=== PATIENT | male | born 1955 | race Caucasian/White ===

== ENCOUNTER 2021-06-19 20:48 | Inpatient (IN) | payer MEDICARE, BC ==
[~2021-06-19] VITALS: Ht 172.7 cm; Wt 77.1 kg
--- NOTE | 2021-06-19 21:05 | NUR ---
MARTY MARTIN FROM [facility] GPS. PLACED IN BED 11 ON MONITOR AND PULSE OX. AWAITING ER MD FOR EVAL AND ORDERS.
--- NOTE | 2021-06-19 21:23 | NUR ---
BREEZYID SWABBED, SENT TO LAB.
--- NOTE | 2021-06-19 22:13 | NUR ---
GPS 211-A
--- NOTE | 2021-06-19 22:29 | NUR ---
REPORT GIVEN TO FABIAN RAMIREZ FOR JUAN
[2021-06-19 23:00] VITALS: BP 129/85
[2021-06-19 23:15] VITALS: BP 129/85
[2021-06-19] MEDS ORDERED: MAG HYDROX/AL HYDROX/SIMETH 30 ML UDC PO PRN (23:30)
[2021-06-19] MEDS ORDERED: TEMAZEPAM 7.5 MG CAPSULE PO PRN (23:30)
[2021-06-19] MEDS ORDERED: MAGNESIUM HYDROXIDE 30 ML UDC PO PRN (23:30)
[2021-06-19] MEDS ORDERED: ACETAMINOPHEN 325 MG TABLET PO PRN (23:30)
[2021-06-19] MEDS ORDERED: BLOOD SUGAR DIAGNOSTIC 1 EACH STRIP IN ONE (23:30)
--- NOTE | 2021-06-20 00:15 | NUR ---
GPS OXYGEN EQUIPMENT TECHNICIAN NOTE RECEIVED 65 YRS OLD MALE PATIENT FROM [facility] DIRECT ADMIT. PATIENT ADMITTED ON A 5150 HOLD FOR DTO/GD. PER HOLD PATIENT IS CONFUSED, DISORGANIZED, DISORIENTED. ACCORDING TO PATIENT'S , PATIENT HAS BEEN INCREASINGLY AGITATED & AGGRESSIVE, PATIENT CLIMBED THE FENCE THREE TIMES AT SNF, ELOPED FROM SNF. WHEN STAFF ATTEMPTED TO BRING HIM BACK TO SNF, PATIENT REFUSED TO GO BACK & AGGRESSIVE TO STAFF, A WEEK AGO, PATIENT KICKED STAFF AT THE FACILITY. PATIENT HAS NO LONGER REGARDS TO HIS SAFETY OF OTHERS. POOR INSIGHT & IMPAIRED JUDGEMENT. PATIENT HAS PREVIOUS INPATIENT PSYCHIATRIC HOSPITALIZATION LAST JULY 2020 AT [facility]. UPON FACE TO FACE ASSESSMENT PATIENT IS A & O TO HIS NAME ONLY, CONFUSED, ANXIOUS, RESTLESS, DISHEVELED, DISORGANIZED, DISORIENTED, AGITATED, AGGRESSIVE, COMBATIVE DURING ADL CARE, NO S/S OF PAIN. NO S/S OF APPARENT DISTRESS NOTED. UNABLE TO OBTAIN ANY HISTORY FROM THE PATIENT DUE TO EXTREME CONFUSION. NON AMBULATORY, HIGH FALL RISK, UNCLEAR SPEECH, UNABLE TO FOLLOW ANY DIRECTIONS. PATIENT IS UNABLE TO SIGN ANY PAPER WORK DUE TO CURRENT MENTAL STATUS. PATIENT IS UNDER THE PSYCHIATRIC CARE OF DR. PADILLA AND THE MEDICAL CARE OF [facility]. PATIENT BELONGINGS WERE INVENTORIED AND CHECKED FOR CONTRABAND. PATIENT ADVANCED DIRECTIVES PREFERENCE, IMMUNIZATIONS QUESTIONER, NECESSARY PAPERWORK COMPLETED. SKIN ASSESSMENT DONE. PATIENT ORIENTATED TO ROOM, FLOOR, AND STAFF. PATIENT BED SIDE RAILS ARE UP X 2 FOR SAFETY. HOB ELEVATED 30-45 DEGREE TO PREVENT ASPIRATION. PATIENT IS UNABLE TO PROVIDE INFORMATION ABOUT COVID 19 & PNEUMONIA VACCINE. PATIENT BED IS LOW/LOCKED. BED ALARM IS ON. I WILL CONTINUE TO MONITOR THIS PATIENT Q 15 MIN WITH THE HELP OF STAFF TO MAINTAIN SAFETY.
[2021-06-20] MEDS: clonazePAM 0.5 MG TABLET PO PRN ×2 (00:51→11:32)
--- NOTE | 2021-06-20 00:53 | NUR ---
RN NOTE: ANXIETY/AGITATION PATIENT IS VERY ANXIOUS, AGITATED, RESTLESS, IRRITABLE, CLIMBING OUT OF BED, COMBATIVE DURING CARE, UNABLE TO REDIRECT THE PATIENT DUE TO CONFUSION. PRN KLONOPIN 0.5 MG 1 TAB PO ADMINISTERED. PATIENT WAS ASSISTED TO KUMAR CHAIR SINCE PATIENT IS UNCOOPERATIVE TO STAY IN BED, UNAWARE ABOUT HIS SAFETY, HIGH FALL RISK. WILL CONTINUE TO MONITOR FOR SAFETY & BEHAVIOR.
--- NOTE | 2021-06-20 01:00 | NUR ---
RN NOTE PATIENT IS UP IN A KUMAR CHAIR, OFFERED NECTAR THICK LIQUIDS TOLERATED, PATIENT TAKES TIMES TO SWALLOW. PATIENT WAS NOTED PICKING HIS ARM SCAB, UNABLE TO FOLLOW DIRECTIONS. WILL CONTINUE TO MONITOR.
[2021-06-20] MEDS ORDERED: BUSP10TA3 PO (01:13)
[2021-06-20] MEDS ORDERED: OLAN5TAB3 PO (01:13)
[2021-06-20] MEDS ORDERED: QUET25TA PO ×3 (01:13)
[2021-06-20] MEDS ORDERED: LAMO150T6 PO (01:13)
[2021-06-20] MEDS ORDERED: LISI10TA29 PO (01:13)
[2021-06-20] MEDS ORDERED: LOVA20TA2 PO (01:13)
[2021-06-20] MEDS ORDERED: VENL150C58 PO (01:13)
[2021-06-20] MEDS ORDERED: MEMA10TA PO (01:13)
[2021-06-20] MEDS ORDERED: Z GUARD REMEDY 4 OZ OINT TP PRN (03:00)
--- NOTE | 2021-06-20 06:10 | NUR ---
RN NOTE DR. ALEX BURRELL NOTIFIED TO RECONCILE THE MEDS. WILL ENDORSE TO AM RN TO FOLLOW UP.
--- NOTE | 2021-06-20 06:50 | NUR ---
RN NOTE PATIENT REFUSED AM LABS AT THIS TIME, PATIENT GETS VERY RESTLESS & AGITATED WHEN TOUCHED, UNCOOPERATIVE AT THIS TIME. POWER NUT RUNNER OPERATOR WILL TRY AGAIN LATER.
--- NOTE | 2021-06-20 06:53 | NUR ---
RN NOTE CALLED PATIENT'S AURA RICHTER AT [phone] & NOTIFIED ABOUT PATIENT'S ADMISSION AT GPS UNIT. AURA HAS POA & PER AURA PATIENT IS DNR/DNI (NO CODE). WILL ENDORSE TO AM RN TO VERIFY CODE STATUS WITH AM MD. AURA WOULD CALL BACK AFTER 10 AM TO GET MORE UPDATE ABOUT PATIENT'S HEALTH CONDITION. Addendum: 06/20/21 at 8640 by JACKELIN CUEAV RN STREET LIGHT SERVICER SUPERVISOR HAD CONVERSATION WITH PATIENT'S AURA VIA PHONE ABOUT PATIENT BEING DNR/DNI AND WITNESSED BY ANOTHER RN MARY.
--- NOTE | 2021-06-20 07:25 | NUR ---
RN NOTE ENDORSED TO AM RN TO FOLLOW UP ABOUT MED RECON & CODE STATUS.
[2021-06-20 08:00] VITALS: BP 132/83
[2021-06-20] MEDS ORDERED: Z GUARD REMEDY 2 OZ OINT TP SCH (09:00)
--- NOTE | 2021-06-20 09:01 | NUR ---
WOUND CARE CONSULT: PT PRESENTS WITH MULTIPLE DRY ABRASIONS, SCABS AND DISCOLORATIONS, PRESENT ON ADMISSION. LIMITED ASSESSMENT AT THIS TIME DUE TO PT STRIKING OUT AT STAFF UNEXPECTEDLY. LEFT ARM ABRASION NOTED. RECOMMENDATIONS MADE FOR SKIN PROTECTION AND WOUND CARE. DISCUSSED WITH NURSING STAFF. MD IN AGREEMENT WITH PLAN OF CARE.
--- NOTE | 2021-06-20 11:33 | NUR ---
RN NOTE: ANXIETY/AGITATION PATIENT IS VERY ANXIOUS, AGITATED, RESTLESS, IRRITABLE, CLIMBING OUT OF BED, UNABLE TO REDIRECT THE PATIENT DUE TO CONFUSION. PRN KLONOPIN 0.5 MG 1 TAB PO ADMINISTERED. UNAWARE ABOUT HIS SAFETY, HIGH FALL RISK. WILL CONTINUE TO MONITOR FOR SAFETY & BEHAVIOR.
[2021-06-20] MEDS ORDERED: VENLAFAXINE XR 150 MG CAP.SR.24H PO SCH (13:40)
[2021-06-20] MEDS: LamoTRIgine 100 MG TABLET PO SCH ×2 (14:05→21:44)
[2021-06-20 16:00] VITALS: BP 145/97
[2021-06-20] MEDS ORDERED: MEMANTINE HCL 5 MG TABLET PO SCH (17:00)
[2021-06-20] MEDS ORDERED: LamoTRIgine 100 MG TABLET PO SCH (17:00)
--- NOTE | 2021-06-20 17:30 | NUR ---
OBSERVED LEFT ELBOW INFLAMMATION AND LOCALIZED SWELLING SOFT TO TOUCH. WILL ENDORSE TO NOC SHIFT RN IN ORDER TO HAVE MD EVALUATE AREA SEEMS ROEL AND SWOLLEN.
[2021-06-20 18:03] LABS: BASOPHILS % (AUTO) 0.3 % (0.0-2.0); HEMATOCRIT 47 % (39-51); HEMOGLOBIN 15.8 g/dL (13.5-17.5); LYMPHOCYTES # (AUTO) 1.1 K/uL (0.8-4.8); LYMPHOCYTES % (AUTO) 8.4 % (20.0-44.0); MEAN CORPUSCULAR HGB CONC 34 g/dl (31.0-36.0); MEAN CORPUSCULAR VOLUME 92 fL (80-96); MONOCYTES # (AUTO) 1.2 K/uL (0.1-1.30); MONOCYTES % (AUTO) 8.7 % (2.0-12.0); NEUTROPHILS # (AUTO) 11.1 K/uL (1.8-8.9); NEUTROPHILS % (AUTO) 82.6 % (43.0-81.0); PLATELET COUNT (AUTO) 465 K/uL (150-450); RED BLOOD CELL COUNT(AUTO) 5.09 MIL/uL (4.5-6.0); WHITE BLOOD COUNT (AUTO) 13.4 K/uL (4.3-11.0)
--- NOTE | 2021-06-20 19:24 | NUR ---
GPS/TIRE TRIMMER HAND Notes: Received report from AM nurse regarding Left swollen elbow during change of shift. Picture taken and MD notified with following orders: STAT US bilateral extremities. Waiting for radiology to call.
[2021-06-20 20:12] LABS: CALCIUM, SERUM 9.8 mg/dL (8.5-10.1); CREATININE 2.7 mg/dL (0.6-1.3); POTASSIUM 3.7 mmol/L (3.5-5.1)
[2021-06-20] MEDS ORDERED: OLANZAPINE ZYDIS 5 MG TAB.RAPDIS PO SCH (22:00)
[2021-06-20 23:01] VITALS: BP 140/93
--- NOTE | 2021-06-21 00:25 | NUR ---
GPS/HEARING AID REPAIR TECHNICIAN Discharge notes: PT. DISCHARGED TO TELE ROOM 325. REPORT GIVEN TO ALMA ROSA RAMIREZ. DR. PADILLA INFORMED OF DISCHARGE. DR. PADILLA GAVE ORDER TO CONTINUE HOLD AND PSYCH MEDS. DR. BURRELL GAVE ORDER TO ADMIT TO TELE FOR LEFT ELBOW INFECTION. ALL ORDERS NOTED AND CARRIED OUT. PT. WAS DISCHARGE WITH ACLS PROTOCOL. FAMILY INFORMED.
[2021-06-21] MEDS ORDERED: ATORVASTATIN 10 MG TABLET PO SCH (09:00)
[2021-06-21] MEDS ORDERED: LISINOPRIL (10MG) 10 MG TABLET PO SCH (09:00)
--- NOTE | 2021-06-21 14:58 | NUR ---
SS Note Pt was transferred to the medical floor on 06/21/21 due to left elbow infection. SS will remain available as needed.
== END 2021-06-20 23:59 | disposition short-term general hospital (02) | DRG 885 ==
LOC: ER 21:08 → GPS 22:37
PROVIDERS: ADMIT Psychiatry & Neurology Psychiatry; ATTEND Internal Medicine
DX: F25.9 Schizoaffective disorder, unspecified (principal); F29 Unspecified psychosis not due to a substance or known physiological condition; F41.9 Anxiety disorder, unspecified; E78.5 Hyperlipidemia, unspecified; I10 Essential (primary) hypertension; G31.84 Mild cognitive impairment of uncertain or unknown etiology; Z79.899 Other long term (current) drug therapy; S09.90XD Unspecified injury of head, subsequent encounter; W19.XXXD Unspecified fall, subsequent encounter; Z73.6 Limitation of activities due to disability
CPT/HCPCS: 36415; 71045-TC; 76882; 80048-TC; 80061-TC; 82962-TC; 84443-TC; 85025-TC; 87081-TC; 92521; 92526; 97112-TC; 97530-TC; C9803

== ENCOUNTER 2021-06-21 00:28 | Inpatient (IN) | payer MEDICARE, BC ==
[~2021-06-21] VITALS: Ht 172.7 cm; Wt 79.8 kg
[2021-06-21 00:20] VITALS: BP 140/84
--- NOTE | 2021-06-21 00:20 | NUR ---
RECEIVED FROM GPS MR. RICHTER IN HIS GPS BED WITH 4 NURSES TRANSFERED TO THE BED IN ROOM 325-2 PATIENT WILL OPEN EYES GIVE MOMENTARY EYE CONTACT THEN CLOSE HIS EYES. PATIENT IS FLUSHED SKIN HOT TO TOUCH TEMP ORALLY 98.5 TYLENOL WAS GIVEN 30 MINUTES AGO. SCABBED RIGHT KNEE RIGHT GROIN ECCHYMOTIC LEFT ELBOW RED HOT TO TOUCH AND SWOLLEN DX INFECTION LEFT ELBOW/SEPSIS
[~2021-06-21 00:28] MED LIST: BUSP10TA3 PO; LAMO150T6 PO; LISI10TA29 PO; LOVA20TA2 PO; MEMA10TA PO; OLAN5TAB3 PO; QUET25TA PO; VENL150C58 PO
[2021-06-21] MEDS ORDERED: VANCOMYCIN HCL 1 GM in IV D5W 260 ML IV ONE (01:30)
[2021-06-21] MEDS ORDERED: MAG HYDROX/AL HYDROX/SIMETH 30 ML UDC PO PRN (01:30)
[2021-06-21] MEDS ORDERED: ACETAMINOPHEN 325 MG TABLET PO PRN (01:30)
[2021-06-21] MEDS ORDERED: hydrALAZINE HCL IV 20 MG VIAL IV PRN (01:30)
[2021-06-21] MEDS ORDERED: MORPHINE SULFATE INJ 2 MG/ML DISP.SYRIN IV PRN (01:30)
[2021-06-21] MEDS ORDERED: ONDANSETRON HCL/PF 4 MG/2 ML VIAL IVP PRN (01:30)
[2021-06-21] MEDS ORDERED: IV NS 0.9% 1,000 ML IV PRN (01:30)
[2021-06-21] MEDS ORDERED: VANCOMYCIN HCL 1 GM in IV D5W 260 ML IV SCH (01:30)
[2021-06-21] MEDS ORDERED: LABETALOL 20 MG/4 ML VIAL IV PRN (01:30)
[2021-06-21] MEDS: IV D5/0.45 NACL 1,000 ML IV SCH ×2 (02:05→14:38)
[2021-06-21] MEDS ORDERED: VANCOMYCIN 1 GM VIAL ONE (02:20)
[2021-06-21] MEDS ORDERED: CEFEPIME 1 GM VIAL ONE (02:49)
[2021-06-21] MEDS: CEFEPIME 1 GM in IV D5W 50 ML IV SCH (03:14)
--- NOTE | 2021-06-21 04:20 | NUR ---
CLOSING NOTES: SLEPT SINCE ARRIVING FROM gps AT 0020. WHEN TOUCHED OR REPOSITIONED WITH JERK ABOUT IN THE BED ARMS AND LEGS AND HIS BODY. IF LEFT ALONE WILL LIE QUIETLY AND STILL ORDERED ATB INFUSED ORDERED. SKIN MUCH COOLER TO TOUCH UNABLE TO GET UA ORDERED INCONTIENT UA
[2021-06-21 06:53] LABS: BASOPHILS % (AUTO) 0.2 % (0.0-2.0); EOSINOPHILS % (AUTO) 0.1 % (0.0-6.0); HEMATOCRIT 50 % (39-51); HEMOGLOBIN 16.5 g/dL (13.5-17.5); LYMPHOCYTES # (AUTO) 1.2 K/uL (0.8-4.8); LYMPHOCYTES % (AUTO) 10.8 % (20.0-44.0); MEAN CORPUSCULAR HGB CONC 33 g/dl (31.0-36.0); MEAN CORPUSCULAR VOLUME 91 fL (80-96); MONOCYTES # (AUTO) 1.2 K/uL (0.1-1.30); MONOCYTES % (AUTO) 10.3 % (2.0-12.0); NEUTROPHILS # (AUTO) 9.1 K/uL (1.8-8.9); NEUTROPHILS % (AUTO) 78.6 % (43.0-81.0); PLATELET COUNT (AUTO) 394 K/uL (150-450); RED BLOOD CELL COUNT(AUTO) 5.42 MIL/uL (4.5-6.0); WHITE BLOOD COUNT (AUTO) 11.5 K/uL (4.3-11.0)
--- NOTE | 2021-06-21 07:51 | NUR ---
MS RN OPENING NOTES RECEIVED PATIENT IN BED, AWAKE, CONFUSED, DISORIENTED. PATIENT ON OXYGEN THERAPY AT 3 LPM VIA NASAL CANULA; BREATHING EVEN AND UNLABORED AT THIS TIME. NO S/S OF PAIN SUCH MOANING, FACIAL GRIMACING OR GUARDING NOTED. RFA IV ACCESS G #20 PRESENT AND INTACT INFUSING D5 1/2 NS @ 80 MLS/HR. SAFETY PRECAUTIONS IN PLACE; BED IN LOW POSITION AND LOCKED, RAILS UP X2, CALL LIGHT WITHIN REACH. WILL CONTINUE TO MONITOR PATIENT.
[2021-06-21 08:25] LABS: BILIRUBIN,TOTAL 0.6 mg/dL (0.2-1.0); CALCIUM, SERUM 9.5 mg/dL (8.5-10.1); CREATININE 2.4 mg/dL (0.6-1.3); POTASSIUM 3.8 mmol/L (3.5-5.1); TOTAL PROTEIN, SERUM 8.9 g/dL (6.4-8.2)
[2021-06-21 08:28] LABS: ALBUMIN 3.3 g/dL (3.4-5.0)
[2021-06-21] MEDS ORDERED: LISINOPRIL (10MG) 10 MG TABLET PO SCH (09:00)
[2021-06-21] MEDS: ATORVASTATIN 10 MG TABLET PO SCH (09:08)
[2021-06-21] MEDS: QUETIAPINE FUMARATE 25 MG TABLET PO SCH ×4 (09:09→21:49)
[2021-06-21] MEDS: busPIRone 5 MG TABLET PO SCH ×3 (09:09→17:04)
[2021-06-21] MEDS: OLANZAPINE 5 MG TABLET PO SCH ×2 (09:09→17:05)
[2021-06-21] MEDS: MEMANTINE HCL 5 MG TABLET PO SCH ×2 (09:09→17:05)
[2021-06-21] MEDS: LamoTRIgine 100 MG TABLET PO SCH ×2 (09:10→21:49)
[2021-06-21] MEDS: VENLAFAXINE XR 150 MG CAP.SR.24H PO SCH (09:10)
[2021-06-21] MEDS: HEPARIN SODIUM, PORCINE 5000 UNITS/1 ML VIAL SQ SCH ×2 (09:11→21:42)
--- NOTE | 2021-06-21 16:46 | NUR ---
PBX MANAGER NOTES ALMA ROSA FROM [facility] CALLED WITH A RESULT OF POSITIVE MRSA R NARIS. WILL NOTIFY
--- NOTE | 2021-06-21 18:38 | NUR ---
MS RN CLOSING NOTES PATIENT REMAINS IN BED, AWAKE, CONFUSED, DISORIENTED. PATIENT ON OXYGEN THERAPY AT 3 LPM VIA NASAL CANULA; BREATHING EVEN AND UNLABORED AT THIS TIME. NO S/S OF PAIN SUCH MOANING, FACIAL GRIMACING OR GUARDING NOTED. RFA IV ACCESS G #20 PRESENT AND INTACT INFUSING D5 1/2 NS @ 80 MLS/HR. ALL NEEDS ATTENDED DURING THE DAY. SAFETY PRECAUTIONS IN PLACE; BED IN LOW POSITION AND LOCKED, RAILS UP X2, CALL LIGHT WITHIN REACH. WILL ENDORSE TO LAB MANAGER NURSE.
--- NOTE | 2021-06-21 19:46 | NUR ---
IN BED ALERT TO SELF WHEN TOUCHED PULLS AWAY AND SHAKES AND KICKS SITTER AT THE BEDSIDE 1:1 ASPIRATION PRECAUTIONS IV INFUSING RIGHT WRIST
[2021-06-21 20:00] VITALS: BP 92/56
[2021-06-21] MEDS: HALOPERIDOL LACTATE INJ 5 MG/ML VIAL IM PRN (23:59)
[2021-06-22] MEDS ORDERED: HALOPERIDOL DECANOATE IM 100 MG/ML AMPUL IM PRN
[2021-06-22] MEDS ORDERED: LORAZEPAM INJ 2 MG/ML VIAL IV ONE (02:30)
[2021-06-22] MEDS: CEFEPIME 1 GM in IV D5W 50 ML IV SCH (02:40)
[2021-06-22] MEDS: VANCOMYCIN 1 GM in IV D5W 250ml IV SCH (02:52)
[2021-06-22] MEDS: IV D5/0.45 NACL 1,000 ML IV SCH ×2 (03:23→15:12)
[2021-06-22 04:00] VITALS: BP 102/62
[2021-06-22 06:45] LABS: ALBUMIN 2.9 g/dL (3.4-5.0); BILIRUBIN,TOTAL 0.5 mg/dL (0.2-1.0); CALCIUM, SERUM 8.6 mg/dL (8.5-10.1); CREATININE 2.5 mg/dL (0.6-1.3); MAGNESIUM 3.3 mg/dL (1.8-2.4); PHOSPHORUS 3.9 mg/dL (2.5-4.9); TOTAL PROTEIN, SERUM 7.9 g/dL (6.4-8.2)
[2021-06-22 07:09] LABS: BASOPHILS % (AUTO) 0.2 % (0.0-2.0); EOSINOPHILS % (AUTO) 0.1 % (0.0-6.0); HEMATOCRIT 44 % (39-51); HEMOGLOBIN 14.5 g/dL (13.5-17.5); LYMPHOCYTES # (AUTO) 0.9 K/uL (0.8-4.8); LYMPHOCYTES % (AUTO) 5.4 % (20.0-44.0); MEAN CORPUSCULAR HGB CONC 33 g/dl (31.0-36.0); MEAN CORPUSCULAR VOLUME 92 fL (80-96); MONOCYTES # (AUTO) 0.8 K/uL (0.1-1.30); NEUTROPHILS # (AUTO) 14.6 K/uL (1.8-8.9); NEUTROPHILS % (AUTO) 89.3 % (43.0-81.0); PLATELET COUNT (AUTO) 338 K/uL (150-450); RED BLOOD CELL COUNT(AUTO) 4.82 MIL/uL (4.5-6.0); WHITE BLOOD COUNT (AUTO) 16.3 K/uL (4.3-11.0)
--- NOTE | 2021-06-22 07:20 | NUR ---
RN OPENING NOTES Patient seen comfortably lying in bed, breathing even and unlabored, no SOB, no apparent distress noted, no grimacing. Safety precautions maintained, brakes locked, side rails up X 2, call light left within reach, will monitor closely for any changes.
--- NOTE | 2021-06-22 07:41 | NUR ---
PUMPER HEAD CLOSING NOTES PATIENT WAS LAST SEEN SLEEPING IN BED. PATIENT'S ALERT AND ORIENTEDX1. PATIENT'S ON ROOM AIR WITH NO CARDIAC DISTRESS NOTED. PATIENT'S CONNECTED TO A TELE MONITOR SHOWING NO CARDIAC DISTRESS . PATIENT HAS AN IV ACCESS ON HIS RIGHT WRIST GAUGE #20, WHICH IS INTACT, PATENT, AND FLUSHING WELL. PATIENT'S IN NO ACUTE DISTRESS AT THIS TIME. SAFETY MEASURES IN PLACE: BED LOCKED, BED ALARM ON, SIDE RAILS UPX3, CALL LIGHT WITHIN REACH OF THE PATIENT, AND A 1:1 SITTER. ENDORSED CARE TO THE DAY SHIFT NURSE.
[2021-06-22] MEDS: QUETIAPINE FUMARATE 25 MG TABLET PO SCH ×4 (08:14→21:56)
[2021-06-22] MEDS: busPIRone 5 MG TABLET PO SCH ×3 (08:14→17:28)
[2021-06-22] MEDS: ATORVASTATIN 10 MG TABLET PO SCH (08:14)
[2021-06-22] MEDS: VENLAFAXINE XR 150 MG CAP.SR.24H PO SCH (08:14)
[2021-06-22] MEDS: OLANZAPINE 5 MG TABLET PO SCH ×2 (08:15→17:28)
[2021-06-22] MEDS: MEMANTINE HCL 5 MG TABLET PO SCH ×2 (08:15→17:28)
[2021-06-22] MEDS: LamoTRIgine 100 MG TABLET PO SCH ×2 (08:15→21:57)
[2021-06-22] MEDS: HEPARIN SODIUM, PORCINE 5000 UNITS/1 ML VIAL SQ SCH ×2 (08:17→21:58)
--- NOTE | 2021-06-22 18:49 | NUR ---
RN CLOSING NOTES Patient seen comfortably lying in bed, AO X1, non verbal, has episodes of confusion, reorientation provided, no apparent distress noted, no grimacing, breathing even and unlabored, no SOB. All medications given per MD order, tolerating well. Patient has restraints, no circulation impairment, skin warm to touch, no pallor or cyanosis noted. All needs anticipated, kept clean and dry, call light left within reach, safety precautions maintained, patient has a 1:1 sitter, brakes locked, side rails up X 2, will endorse to next shift for continuity of care.
[2021-06-22 20:00] VITALS: BP 107/65
--- NOTE | 2021-06-22 20:00 | NUR ---
VP CORPORATE PARTNERSHIPS OPENING NOTES: RECEIVED PATIENT SLEEP IN BED COMFORTABLY, BED IN LOW POSITION, CALL LIGHTS WITHIN REACH NO COMPLAIN OF PAIN AND DISCOMFORT AT THIS TIME, ON TELE MONITORING AT SR-90, ON RA NO SOB WAS OBSERVED, PUREED DIET WITH IV LINE AT R WRIST #20 WITH D5 1/2 NSS@80 ML/HR INFUSING WELL, HOB AT 30-45 DEGREE, WITH 1:1 SITTER PATIENT WAS WITH RESTRAINT DUE TO COMBATIVE BEHAVIOR, KEPT CLEAN MARVIN ALL NEEDS MET, WILL CONTINUE TO MONITOR
[2021-06-22 23:33] VITALS: BP 107/66
[2021-06-23] VITALS: BP 108/94
[2021-06-23] MEDS: CEFEPIME 1 GM in IV D5W 50 ML IV SCH (01:35)
[2021-06-23] MEDS: IV D5/0.45 NACL 1,000 ML IV SCH ×3 (02:10→22:41)
[2021-06-23] MEDS: VANCOMYCIN 1 GM in IV D5W 250ml IV SCH (03:09)
[2021-06-23 04:00] VITALS: BP_SYST 127; BP_SYST 132; BP_DIAS 82; BP_DIAS 84
[2021-06-23 06:50] LABS: BASOPHILS % (AUTO) 0.2 % (0.0-2.0); EOSINOPHILS % (AUTO) 0.7 % (0.0-6.0); HEMATOCRIT 42 % (39-51); HEMOGLOBIN 13.7 g/dL (13.5-17.5); LYMPHOCYTES # (AUTO) 1.3 K/uL (0.8-4.8); LYMPHOCYTES % (AUTO) 11.2 % (20.0-44.0); MEAN CORPUSCULAR HGB CONC 33 g/dl (31.0-36.0); MEAN CORPUSCULAR VOLUME 92 fL (80-96); MONOCYTES # (AUTO) 0.8 K/uL (0.1-1.30); NEUTROPHILS # (AUTO) 9.7 K/uL (1.8-8.9); NEUTROPHILS % (AUTO) 80.9 % (43.0-81.0); PLATELET COUNT (AUTO) 288 K/uL (150-450); RED BLOOD CELL COUNT(AUTO) 4.53 MIL/uL (4.5-6.0)
[2021-06-23 07:09] LABS: CALCIUM, SERUM 8.6 mg/dL (8.5-10.1); CREATININE 1.7 mg/dL (0.6-1.3); PHOSPHORUS 2.7 mg/dL (2.5-4.9); POTASSIUM 3.6 mmol/L (3.5-5.1)
--- NOTE | 2021-06-23 07:30 | NUR ---
PICK AND SHOVEL MAN OPENING NOTES: RECEIVED PATIENT AWAKE ON BED, A/O X1, CONFUSED AND NON-VERBAL. ON ROOM AIR, TOLERATING WELL WITH NO SIGNS OF SOB. NOT IN DISTRESS. WITH NO SIGNS OF PAIN NOTED AT THIS TIME. WITH IV ACCESS AT RIGHT WRIST G20 WITH D5 1/2NS AT 100ML/HR. ON TELE MONITOR CURRENTLY READING NORMAL SINUS RHYTHM AT 94BPM. SAFETY MEASURES IN PLACED. CALL LIGHT WITHIN REACH. BED ON LOWEST AND LOCKED POSITION, WITH 1:1 SITTER PATIENT WAS WITH BILATERAL SOFT WRIST RESTRAINT DUE TO COMBATIVE BEHAVIOR, KEPT CLEAN AN DRY. WILL CONTINUE TO MONITOR
--- NOTE | 2021-06-23 07:46 | NUR ---
RN CLOSING NOTES: PATIENT WAS PLACED IN BED COMFORTABLY, BED IN LOW POSITION, CALL LIGHTS WITHIN REACH, WITH 1:1 SITTER, PATIENT IS ON AND OFF RESTRAINT DUE TO COMBATIVE BEHAVIOR, ON TELE MONITORING SR-94, IV LINE IS INTACT AT R [id number] WITH ONGOING D5 1/2 NSS@100ML/HR INFUSING WELL, PATIENT KEPT CLEAN AND DRY, ALL NEEDS MET,ENDORSE TO INCOMING SHIFT.
[2021-06-23 08:00] VITALS: BP 108/61
[2021-06-23] MEDS: MEMANTINE HCL 5 MG TABLET PO SCH ×2 (08:30→16:19)
[2021-06-23] MEDS: VENLAFAXINE XR 150 MG CAP.SR.24H PO SCH (08:31)
[2021-06-23] MEDS: busPIRone 5 MG TABLET PO SCH ×3 (08:31→16:19)
[2021-06-23] MEDS: QUETIAPINE FUMARATE 25 MG TABLET PO SCH ×4 (08:31→21:48)
[2021-06-23] MEDS: OLANZAPINE 5 MG TABLET PO SCH ×2 (08:31→16:18)
[2021-06-23] MEDS: LamoTRIgine 100 MG TABLET PO SCH ×2 (08:32→21:48)
[2021-06-23] MEDS: ATORVASTATIN 10 MG TABLET PO SCH (08:32)
[2021-06-23] MEDS: HEPARIN SODIUM, PORCINE 5000 UNITS/1 ML VIAL SQ SCH ×2 (08:34→21:50)
--- NOTE | 2021-06-23 10:04 | NUR ---
PT CURRENTLY UNDER WATCH BY CHRIS, PT AGITATED FOR CT PER CRYSTAL RN
[2021-06-23] MEDS: MUPIROCIN OINT 2% 22 GM TUBE NS SCH ×2 (11:10→16:20)
[2021-06-23] MEDS: VANCOMYCIN 0.75 GM in IV D5W 250 ML IV SCH (13:49)
[2021-06-23 14:30] LABS: CREATININE, URINE 154.6 MG/DL (30.0-125.0)
--- NOTE | 2021-06-23 15:16 | NUR ---
PER RN ZACHARY, STATES PT IS UNABLE TO HOLD STILL FOR CT SCAN AND UNCOOPERATIVE. PLEASE CALL RADIOLOGY EXT [phone] IF PT IS ABLE TO PERFORM CT SCAN.
--- NOTE | 2021-06-23 18:49 | NUR ---
MS RN CLOSING NOTES: PATIENT AWAKE ON BED, A/O X1, CONFUSED AND NON-VERBAL. ON ROOM AIR, TOLERATING WELL WITH NO SIGNS OF SOB. NOT IN DISTRESS. WITH NO SIGNS OF PAIN NOTED AT THIS TIME. WITH IV ACCESS AT RIGHT WRIST G20 WITH D5 1/2NS AT 100ML/HR. SAFETY MEASURES IN PLACED. CALL LIGHT WITHIN REACH. BED ON LOWEST AND LOCKED POSITION, WITH 1:1 SITTER PATIENT WAS WITH BILATERAL SOFT WRIST RESTRAINT DUE TO COMBATIVE BEHAVIOR, KEPT CLEAN AN DRY. WILL ENDORSE TO NEXT SHIFT FOR JUAN.
[2021-06-23 19:26] LABS: BILIRUBIN,URINE NEGATIVE (NEGATIVE); COLOR,URINE YELLOW (YELLOW); LEUKOCYTE ESTERASE ,URINE NEGATIVE (NEGATIVE); NITRITE, URINE NEGATIVE (NEGATIVE); PROTEIN,URINE TRACE mg/dl (NEGATIVE); UGLUCOSE NEGATIVE (NEGATIVE)
[2021-06-23 19:40] LABS: BACTERIA,URINE 1+ /HPF (None Seen)
[2021-06-23 19:41] LABS: SQUAMOUS EPITHELIAL CELL,UR 0-2 /HPF (None Seen)
[2021-06-23 19:42] LABS: COARSE GRANULAR CASTS,URINE Few /LPF (None Seen); HYALINE CASTS, URINE Few /LPF (None Seen); MUCUS,URINE Few /LPF (None Seen)
--- NOTE | 2021-06-23 20:29 | NUR ---
MS RN OPENING NOTES: RECEIVED PATIENT AWAKE IN BED, WITH 1:1 SITTER NO COMPLAIN OF PAIN AND DISCOMFORT AT THIS TIME, BED IN LOW POSITION CALL LIGHTS WITHIN REACH, PATIENT WAS A/O X1 WITH AGGRESSIVE BEHAVIOR ON RESTRAINT TO LOOSEN EVERY TWO HOURS, SKIN MONITORING, WITH IV LINE AT RT WRIST 320 WITH D5 1/2 NSS @100ML/HR INFUSING WELL, ALL NEEDS MET, KEPT CLEAN AND DRY, WILL CONTINUE TO MONITOR.
[2021-06-24 01:40] VITALS: BP 109/70
[2021-06-24] MEDS: CEFEPIME 1 GM in IV D5W 50 ML IV SCH (01:47)
[2021-06-24] MEDS: VANCOMYCIN 0.75 GM in IV D5W 250 ML IV SCH ×2 (02:35→14:00)
--- NOTE | 2021-06-24 06:47 | NUR ---
RN CLOSING NOTES: PATIENT SLEEP IN BED COMFORTABLY, BED IN LOW POSITION, CALL LIGHTS WITHIN REACH, NO COMPLAIN OF PAIN AND DISCOMFORT AT THIS TIME, WITH IV LINE AT LEFT WRIST #20 ON D5 1/2 NSS@100 ML/HR INFUSING WELL,PATIENT HAS !:1 SITTER, ON RESTRAINT RELEASE EVERY 2 HR AND ASSESS, ONRA NO SOB OR ANY RESP DISTRESS OBSERVED, PATIENT KEPT CLEAN AND DRY, ALL NEEDS MET, ENDORSE TO INCOMING SHIFT,
--- NOTE | 2021-06-24 07:30 | NUR ---
MS RN OPENING NOTES: RECEIVED PATIENT AWAKE ON BED, A/O X1, CONFUSED AND NON-VERBAL. ON ROOM AIR, TOLERATING WELL WITH NO SIGNS OF SOB. NOT IN DISTRESS. WITH NO SIGNS OF PAIN NOTED AT THIS TIME. WITH IV ACCESS AT RIGHT WRIST G20 WITH D5 1/2NS AT 100ML/HR. SAFETY MEASURES IN PLACED. CALL LIGHT WITHIN REACH. BED ON LOWEST AND LOCKED POSITION, WITH 1:1 SITTER. PATIENT WITH BILATERAL SOFT WRIST RESTRAINT DUE TO COMBATIVE BEHAVIOR. WILL CONTINUE TO MONITOR.
[2021-06-24 08:00] VITALS: BP 122/73
[2021-06-24 09:01] LABS: BASOPHILS % (AUTO) 0.4 % (0.0-2.0); EOSINOPHILS % (AUTO) 2.8 % (0.0-6.0); HEMATOCRIT 40 % (39-51); HEMOGLOBIN 12.9 g/dL (13.5-17.5); LYMPHOCYTES # (AUTO) 1.1 K/uL (0.8-4.8); LYMPHOCYTES % (AUTO) 17.3 % (20.0-44.0); MEAN CORPUSCULAR HGB CONC 33 g/dl (31.0-36.0); MEAN CORPUSCULAR VOLUME 92 fL (80-96); MONOCYTES # (AUTO) 0.4 K/uL (0.1-1.30); NEUTROPHILS # (AUTO) 4.5 K/uL (1.8-8.9); NEUTROPHILS % (AUTO) 72.5 % (43.0-81.0); PLATELET COUNT (AUTO) 220 K/uL (150-450); WHITE BLOOD COUNT (AUTO) 6.2 K/uL (4.3-11.0)
[2021-06-24] MEDS: busPIRone 5 MG TABLET PO SCH ×3 (09:32→17:19)
[2021-06-24] MEDS: OLANZAPINE 5 MG TABLET PO SCH ×2 (09:33→17:19)
[2021-06-24] MEDS: MEMANTINE HCL 5 MG TABLET PO SCH ×2 (09:33→17:19)
[2021-06-24 09:34] LABS: CALCIUM, SERUM 8.5 mg/dL (8.5-10.1); CREATININE 1.3 mg/dL (0.6-1.3); MAGNESIUM 2.5 mg/dL (1.8-2.4); POTASSIUM 3.8 mmol/L (3.5-5.1)
[2021-06-24] MEDS: LamoTRIgine 100 MG TABLET PO SCH ×2 (09:34→22:19)
[2021-06-24] MEDS: VENLAFAXINE XR 150 MG CAP.SR.24H PO SCH (09:34)
[2021-06-24] MEDS: QUETIAPINE FUMARATE 25 MG TABLET PO SCH ×4 (09:34→22:19)
[2021-06-24] MEDS: ATORVASTATIN 10 MG TABLET PO SCH (09:34)
[2021-06-24] MEDS: MUPIROCIN OINT 2% 22 GM TUBE NS SCH (09:36)
[2021-06-24] MEDS: HEPARIN SODIUM, PORCINE 5000 UNITS/1 ML VIAL SQ SCH ×2 (09:47→22:21)
[2021-06-24] MEDS ORDERED: IV 1/2NS 1000 ML 1,000 ML IV ONE (12:00)
[2021-06-24] MEDS ORDERED: LORAZEPAM INJ 2 MG/ML VIAL IV ONE (13:20)
[2021-06-24] MEDS ORDERED: LORAZEPAM INJ 2 MG/ML VIAL ONE (13:22)
[2021-06-24 13:39] VITALS: BP 115/75
--- NOTE | 2021-06-24 13:39 | NUR ---
MS RN NOTE PATIENT FOR CT SCAN AT LEFT ELBOW. WITH ORDER FROM DR. Abiel FLOWERS OF ATIVAN 1MG IV ONETIME ORDER FOR PATIENT IS COMBATIVE. GIVEN ATIVAN VIA IV. CHECKED PATIENT V/S BEFORE ATIVAN WAS GIVEN. BP-115/75MMHG, NH-73, T-98.2F AND O2 SAT-98%.
--- NOTE | 2021-06-24 14:10 | NUR ---
MS RN NOTES PATIENT WAS SENT BACK FROM RADIOLOGY FOR PATIENT WAS REPORTED TO STILL BEING AGITATED AND COMBATIVE. PROCEDURE NOT DONE. TEXTED DR. FLOWERS AND ORDERED HALDOL 2.5MG IV AND BENADRYL 25MG IV ONETIME FOR COMBATIVE BEHAVIOR.
[2021-06-24] MEDS ORDERED: diphenhydrAMINE HCL 50 MG/ML VIAL IV ONE (14:30)
[2021-06-24] MEDS ORDERED: HALOPERIDOL LACTATE INJ 5 MG/ML VIAL IV ONE (14:30)
--- NOTE | 2021-06-24 14:40 | NUR ---
MS RN NOTE CHECKED PATIENT'S VITAL SIGNS AND PT HAD LOW BP OF 97/55. TEXTED DR. FLOWERS AND ORDERED TO RUN LR 5OOML BOLUS.
[2021-06-24 16:00] VITALS: BP 111/63
[2021-06-24] MEDS: CEFEPIME 2 GM in IV D5W 100 ML IV SCH (16:00)
[2021-06-24] MEDS ORDERED: IV NS 0.9% 500 ML BAG IV ONE (16:00)
[2021-06-24] MEDS ORDERED: IV D5 LR 500 ML IV ONE ×2 (16:30)
[2021-06-24 16:50] VITALS: BP 123/75
--- NOTE | 2021-06-24 16:50 | NUR ---
RN NOTES V/S CHECKED: BP-123/75, KY-72, TEMP-98.1, RR-20 AND O2 SAT-98%. DR. FLOWERS ORDERED TO GIVE HALDOL 2.5MG AND BENADRYL 25MG IV AND INFORM RADIOLOGY DEPT TO HAVE PATIENT FOR CT. CONTACTED RADIOLOGY DEPT TO HAVE THE PATIENT FOR CT IN 15MINS.
[2021-06-24] MEDS ORDERED: diphenhydrAMINE HCL 50 MG/ML VIAL ONE (16:53)
--- NOTE | 2021-06-24 19:49 | NUR ---
MS RN OPENING NOTES RECEIVED PATIENT SLEEP IN BED COMFORTABLY,AROUSABLE TO TACTILE STIMULI, BED IN LOW POSITION, CALL LIGHTS WITHIN REACH, NO COMPLAIN OF PAIN AND DISCOMFORT AT THIS TIME, WITH IV LINE AT R WRIST #20 SL, PATIENT IS ON RESTRAINT RELASES AND ASSESS q2H DUE TO COMBATIVE BEHAVIOR AND PULLING OF IV LINE, PATIENT KEPT CLEAN AND DRY, ALL NEEDS MET, WILL CONTINUE TO MONITOR
[2021-06-24 20:00] VITALS: BP 114/57
--- NOTE | 2021-06-24 20:25 | NUR ---
MS RN CLOSING NOTES: PATIENT AWAKE ON BED, A/O X1, CONFUSED AND NON-VERBAL. ON ROOM AIR, TOLERATING WELL WITH NO SIGNS OF SOB. NOT IN DISTRESS. WITH NO SIGNS OF PAIN NOTED AT THIS TIME. WITH IV ACCESS AT RIGHT WRIST G20 WITH D5 1/2NS AT 100ML/HR. SAFETY MEASURES IN PLACED. CALL LIGHT WITHIN REACH. BED ON LOWEST AND LOCKED POSITION, WITH 1:1 SITTER. PATIENT WITH BILATERAL SOFT WRIST RESTRAINT DUE TO COMBATIVE BEHAVIOR. WILL ENDORSE TO NEXT SHIFT FOR JUAN.
[2021-06-25] MEDS: VANCOMYCIN 0.75 GM in IV D5W 250 ML IV SCH ×2 (02:19→14:04)
[2021-06-25] MEDS: CEFEPIME 2 GM in IV D5W 100 ML IV SCH ×2 (03:35→16:44)
--- NOTE | 2021-06-25 07:17 | NUR ---
MS RN OPENING NOTES RECEIVED PATIENT IN BED ASLEEP, EASILY AWAKENS. 1:1 SITTER AT BEDSIDE. PT IS A/O X1. CONFUSED AND NON -VERBAL. B/L SOFT WRIST RESTRAINTS OFF AT THIS TIME. ON ROOM AIR, TOLERATING WELL, BREATHING EVEN AND UNLABORED. IV ACCESS ON RIGHT WRIST G#22 INTACT AND PATENT. SAFETY MEASURES IN PLACE: HOB KEPT ELEVATED, BED IN LOWEST LOCKED POSITION, SIDE RAILS UPX2. CALL LIGHT AND BEDSIDE TABLE WITHIN EASY REACH OF PT. WILL CONTINUE TO CLOSELY MONITOR PT.
--- NOTE | 2021-06-25 07:35 | NUR ---
RN CLOSING NOTES: PATIENT SLEEP IN BED COMFORTABLY, AROUSABLE TO TACTILE STIMULI, BED IN LOW POSITION, CALL LIGHTS WITHIN REACH WITH 1:1 SITTER PATIENT HAS IV LINE AT RT WRIST#20, SL, ON RESTRAINT DUE TO COMBATIVE BEHAVIOR RELEASE Q2H, PATIENT KEPT CLEAN AND DRY ALL MEDS GIVEN, ENDORSE TO INCOMING SHIFT.
[2021-06-25 07:44] LABS: BASOPHILS % (AUTO) 0.3 % (0.0-2.0); EOSINOPHILS % (AUTO) 3.2 % (0.0-6.0); HEMATOCRIT 36 % (39-51); LYMPHOCYTES # (AUTO) 1.1 K/uL (0.8-4.8); LYMPHOCYTES % (AUTO) 17.2 % (20.0-44.0); MEAN CORPUSCULAR HGB CONC 33 g/dl (31.0-36.0); MEAN CORPUSCULAR VOLUME 92 fL (80-96); MONOCYTES # (AUTO) 0.5 K/uL (0.1-1.30); MONOCYTES % (AUTO) 7.4 % (2.0-12.0); NEUTROPHILS # (AUTO) 4.4 K/uL (1.8-8.9); NEUTROPHILS % (AUTO) 71.9 % (43.0-81.0); PLATELET COUNT (AUTO) 225 K/uL (150-450); RED BLOOD CELL COUNT(AUTO) 3.97 MIL/uL (4.5-6.0); WHITE BLOOD COUNT (AUTO) 6.1 K/uL (4.3-11.0)
[2021-06-25 07:50] LABS: CALCIUM, SERUM 8.4 mg/dL (8.5-10.1); CREATININE 1.2 mg/dL (0.6-1.3); MAGNESIUM 2.2 mg/dL (1.8-2.4); POTASSIUM 3.5 mmol/L (3.5-5.1)
[2021-06-25 08:00] VITALS: BP 118/74
[2021-06-25] MEDS: LamoTRIgine 100 MG TABLET PO SCH ×2 (08:34→20:08)
[2021-06-25] MEDS: OLANZAPINE 5 MG TABLET PO SCH ×2 (08:35→17:19)
[2021-06-25] MEDS: ATORVASTATIN 10 MG TABLET PO SCH (08:35)
[2021-06-25] MEDS: busPIRone 5 MG TABLET PO SCH ×3 (08:35→17:19)
[2021-06-25] MEDS: QUETIAPINE FUMARATE 25 MG TABLET PO SCH ×4 (08:36→20:07)
[2021-06-25] MEDS: MEMANTINE HCL 5 MG TABLET PO SCH ×2 (08:36→17:19)
[2021-06-25] MEDS: VENLAFAXINE XR 150 MG CAP.SR.24H PO SCH (08:36)
[2021-06-25] MEDS: MUPIROCIN OINT 2% 22 GM TUBE NS SCH ×2 (08:37→17:20)
[2021-06-25] MEDS: HEPARIN SODIUM, PORCINE 5000 UNITS/1 ML VIAL SQ SCH ×2 (08:38→20:18)
--- NOTE | 2021-06-25 15:41 | NUR ---
RN NOTES PT FOR LEFT ELBOW INCISION AND DRAINAGE TOMORROW, 06/26/20 BY TEVIN FONTANA. TELEPHONE CONSENTS OBTAINED FROM MIRNA AT [facility] # [phone] AND CONFIRMED BY ANOTHER RN JIHAN.
[2021-06-25 16:00] VITALS: BP 118/78
--- NOTE | 2021-06-25 18:46 | NUR ---
MS RN CLOSING NOTES PATIENT IN BED AWAKE AT THIS TIME. A/O X1. CONFUSED AND RESTLESS ON AND OFF DURING THE DAY. 1:1 SITTER AT BEDSIDE. B/L SOFT WRIST RESTRAINTS IN PLACE WITH GOOD CIRCULATIONS NOTED ON BOTH HANDS AND ARMS. PT FOR INCISION AND DRAINAGE OF LEFT ELBOW TOMORROW, NPO TO BE ENFORCED POST MIDNIGHT. ON ROOM AIR, TOLERATING WELL, BREATHING EVEN AND UNLABORED. IV ACCESS ON RIGHT WRIST G#22 INTACT AND PATENT. PT REPOSITIONED IN BED PRN. ALL NEEDS AND CARE PROVIDED WELL. SAFETY MEASURES IN PLACE: HOB KEPT ELEVATED, BED IN LOWEST LOCKED POSITION, SIDE RAILS UPX2. CALL LIGHT WITHIN REACH. WILL ENDORSE JUAN TO APPLICATION PENETRATION TESTER NURSE.
--- NOTE | 2021-06-25 19:30 | NUR ---
MS RN OPENING NOTE RECEIVED PT AWAKE IN BED. A/O X1 WITH PERIODS OF CONFUSION AND RESTLESSNESS. 1:1 SITTER AT BEDSIDE. B/L SOFT WRIST RESTRAINTS IN PLACE WITH GOOD CIRCULATIONS NOTED ON BOTH HANDS AND ARMS. PT SCHEDULED FOR I&D OF LEFT ELBOW ON 06/26/21, PT TO BE MAINTAINED NPO POST MIDNIGHT. PT IS STABLE ON ROOM AIR WITH NO SOB OR S/S OF RESPIRATORY DISTRESS NOTED. IV ACCESS IN RIGHT WRIST #22, INTACT AND PATENT. SAFETY PRECAUTIONS MAINTAINED. BED IN LOWEST LOCKED POSITION, HOB ELEVATED, SIDE RAILS UP X2. CALL LIGHT AND TABLE WITHIN REACH. WILL CONTINUE WITH PLAN OF CARE.
[2021-06-25 20:00] VITALS: BP 134/83
--- NOTE | 2021-06-25 20:18 | NUR ---
RN NOTE HEPARIN 5000 UNITS/ML SQ WITHHELD DUE TO UPCOMING PROCEDURE ON 06/26/21. WILL CONTINUE TO MONITOR.
--- NOTE | 2021-06-25 21:04 | NUR ---
RN NOTE PERFORMED BLADDER SCAN PER ORDER. URINE RESIDUAL=[id number].
[2021-06-26] MEDS: VANCOMYCIN 0.75 GM in IV D5W 250 ML IV SCH ×2 (01:28→13:15)
[2021-06-26] MEDS: CEFEPIME 2 GM in IV D5W 100 ML IV SCH ×2 (03:11→16:07)
[2021-06-26 04:00] VITALS: BP 103/45
--- NOTE | 2021-06-26 05:04 | NUR ---
RN NOTE PERFORMED BLADDER SCAN PER ORDER. URINE RESIDUAL=[id number].
--- NOTE | 2021-06-26 06:24 | NUR ---
MS RN CLOSING NOTE PT IS AWAKE IN BED. A/O X1 WITH PERIODS OF CONFUSION AND RESTLESSNESS. 1:1 SITTER AT BEDSIDE. B/L SOFT WRIST RESTRAINTS IN PLACE WITH GOOD CIRCULATIONS NOTED ON BOTH HANDS AND ARMS. PT SCHEDULED FOR I&D OF LEFT ELBOW ON 06/26/21, PT MAINTAINED NPO POST MIDNIGHT. PT IS STABLE ON ROOM AIR WITH NO SOB OR S/S OF RESPIRATORY DISTRESS NOTED. IV ACCESS IN RIGHT WRIST #22, INTACT AND PATENT. ALL NEEDS HAVE BEEN MET. SAFETY PRECAUTIONS MAINTAINED AT ALL TIMES. BED IN LOWEST LOCKED POSITION, HOB ELEVATED, SIDE RAILS UP X2. CALL LIGHT AND TABLE WITHIN REACH. WILL ENDORSE TO ONCOMING NURSE FOR JUAN.
[2021-06-26] MEDS: MUPIROCIN OINT 2% 22 GM TUBE NS SCH ×2 (08:17→17:16)
[2021-06-26] MEDS: busPIRone 5 MG TABLET PO SCH ×3 (08:18→17:14)
[2021-06-26] MEDS ORDERED: LIDOCAINE 1% INJ 50 ML MDV IJ ONE (08:18)
[2021-06-26] MEDS: MEMANTINE HCL 5 MG TABLET PO SCH ×2 (08:18→17:14)
[2021-06-26] MEDS: VENLAFAXINE XR 150 MG CAP.SR.24H PO SCH (08:18)
[2021-06-26] MEDS ORDERED: BUPIVACAINE 0.5 % PF 150 MG/30 ML VIAL ONE (08:18)
[2021-06-26] MEDS: ATORVASTATIN 10 MG TABLET PO SCH (08:18)
[2021-06-26] MEDS: LamoTRIgine 100 MG TABLET PO SCH ×2 (08:18→20:47)
[2021-06-26] MEDS: QUETIAPINE FUMARATE 25 MG TABLET PO SCH ×4 (08:18→20:47)
[2021-06-26] MEDS: OLANZAPINE 5 MG TABLET PO SCH ×2 (08:18→17:14)
[2021-06-26] MEDS: HEPARIN SODIUM, PORCINE 5000 UNITS/1 ML VIAL SQ SCH ×2 (08:19→20:49)
[2021-06-26] MEDS ORDERED: FENTANYL PF 100MCG/2ML AMPUL ONE (09:41)
[2021-06-26 15:21] LABS: BASOPHILS % (AUTO) 0.2 % (0.0-2.0); EOSINOPHILS % (AUTO) 2.2 % (0.0-6.0); HEMATOCRIT 37 % (39-51); HEMOGLOBIN 12.2 g/dL (13.5-17.5); LYMPHOCYTES # (AUTO) 0.8 K/uL (0.8-4.8); LYMPHOCYTES % (AUTO) 11.2 % (20.0-44.0); MEAN CORPUSCULAR HGB CONC 33 g/dl (31.0-36.0); MEAN CORPUSCULAR VOLUME 90 fL (80-96); MONOCYTES # (AUTO) 0.6 K/uL (0.1-1.30); MONOCYTES % (AUTO) 8.8 % (2.0-12.0); NEUTROPHILS # (AUTO) 5.3 K/uL (1.8-8.9); NEUTROPHILS % (AUTO) 77.6 % (43.0-81.0); PLATELET COUNT (AUTO) 249 K/uL (150-450); RED BLOOD CELL COUNT(AUTO) 4.14 MIL/uL (4.5-6.0); WHITE BLOOD COUNT (AUTO) 6.9 K/uL (4.3-11.0)
[2021-06-26 15:31] LABS: CALCIUM, SERUM 8.4 mg/dL (8.5-10.1); CREATININE 1.2 mg/dL (0.6-1.3); MAGNESIUM 2.1 mg/dL (1.8-2.4); POTASSIUM 2.9 mmol/L (3.5-5.1)
[2021-06-26 15:49] LABS: IRON, SERUM 58 ug/dl (50-175); TOTAL IRON BINDING CAPACITY 214 ug/dl (250-450)
[2021-06-26 15:51] LABS: FERRITIN 657 ng/mL (8-388)
--- NOTE | 2021-06-26 18:39 | NUR ---
MS RN CLOSING NOTE PATIENT CURRENTLY LYING IN BED, AWAKE AND RESTLESS. SITTER AT BEDSIDE. STABLE ON ROOM AIR - NO SOB NOTED. NO DISTRESS/DISCOMFORT NOTED. B/L SOFT WRIST RESTRAINTS IN PLACE - GOOD CIRCULATION NOTED ON BOTH HANDS AND ARMS. S/P I&D OF THE LEFT ELBOW WITH DR. CERVANTES. ELBOW IS WRAPPED IN SUDEEP BANDAGE - TO BE CHANGED DAILY STARTING TOMORROW. IV ACCESS TO RIGHT WRIST #22, INTACT AND PATENT. SAFETY MEASURES IN PLACE. CALL LIGHT WITHIN REACH. WILL ENDORSE TO CHIEF OPERATOR NURSE FOR JUAN.
--- NOTE | 2021-06-26 19:30 | NUR ---
RN OPENING NOTE PATIENT IN BED, EYES CLOSED. PATIENT IS EASILY AROUSED, PATIENT MUMBLES, A/O X 1 CONFUSED. PATIENT'S BREATHING EVEN AND UNLABORED. TOLERATES ROOM AIR. PATIENT HAS A DRESSING IN PLACE ON L ELBOW S/P I & D W DR. CERVANTES. PATIENT HAS A R WRIST 22 G SALINE LOCKED. PATIENT HAS DOMINIQUE SOFT WRIST RESTRAINTS. SAFETY MEASURES IN PLACE: BED LOCKED AND IN LOWEST POSITION, CALL LIGHT WITHIN REACH, SIDE RAILS UP, SITTER PRESENT. WILL MONITOR PATIENT'S CONDITION AND BEHAVIOR CLOSELY.
[2021-06-26 20:00] VITALS: BP 143/71
[2021-06-27] MEDS: POTASSIUM CL. PREMIX PERIPHER. 50 ML IV SCH ×4 (00:27→03:48)
--- NOTE | 2021-06-27 00:55 | NUR ---
RN NOTE INSERTED RAC 20 G PIV, PATENT AND INTACT, FOR ADDITIONAL ACCESS.
[2021-06-27] MEDS: VANCOMYCIN 0.75 GM in IV D5W 250 ML IV SCH ×2 (02:44→13:10)
[2021-06-27] MEDS: CEFEPIME 2 GM in IV D5W 100 ML IV SCH ×2 (03:48→15:14)
[2021-06-27 06:50] LABS: BASOPHILS % (AUTO) 0.3 % (0.0-2.0); EOSINOPHILS % (AUTO) 2.4 % (0.0-6.0); HEMATOCRIT 39 % (39-51); HEMOGLOBIN 12.8 g/dL (13.5-17.5); LYMPHOCYTES # (AUTO) 1.1 K/uL (0.8-4.8); LYMPHOCYTES % (AUTO) 17.5 % (20.0-44.0); MEAN CORPUSCULAR HGB CONC 33 g/dl (31.0-36.0); MEAN CORPUSCULAR VOLUME 92 fL (80-96); MONOCYTES # (AUTO) 0.6 K/uL (0.1-1.30); MONOCYTES % (AUTO) 9.5 % (2.0-12.0); NEUTROPHILS # (AUTO) 4.4 K/uL (1.8-8.9); NEUTROPHILS % (AUTO) 70.3 % (43.0-81.0); PLATELET COUNT (AUTO) 243 K/uL (150-450); RED BLOOD CELL COUNT(AUTO) 4.19 MIL/uL (4.5-6.0); WHITE BLOOD COUNT (AUTO) 6.2 K/uL (4.3-11.0)
[2021-06-27 06:57] LABS: ALBUMIN 2.5 g/dL (3.4-5.0); BILIRUBIN,TOTAL 0.7 mg/dL (0.2-1.0); CALCIUM, SERUM 8.2 mg/dL (8.5-10.1); CREATININE 1.2 mg/dL (0.6-1.3); MAGNESIUM 2.3 mg/dL (1.8-2.4); PHOSPHORUS 2.4 mg/dL (2.5-4.9); POTASSIUM 4.1 mmol/L (3.5-5.1); TOTAL PROTEIN, SERUM 6.8 g/dL (6.4-8.2)
--- NOTE | 2021-06-27 07:20 | NUR ---
RN CLOSING NOTE PATIENT IN BED, EYES CLOSED. PATIENT IS EASILY AROUSED, PATIENT MUMBLES, A/O X , CONFUSED. PATIENT STILL GETS AGITATED, NON COMPLIANT, AND PHYSICALLY AGGRESSIVE. PATIENT'S BREATHING EVEN AND UNLABORED. TOLERATES ROOM AIR. PATIENT HAS A DRESSING IN PLACE ON L ELBOW S/P I & D W DR. CERVANTES. PATIENT HAS A R WRIST 22 G SALINE LOCKED, WELL RAC 20 G. PATIENT HAS DOMINIQUE SOFT WRIST RESTRAINTS IN PLACE, 1:1 SITTER PRESENT. SAFETY MEASURES IMPLEMENTED. ALL NEEDS MET AND ATTENDED, ALL ORDERS CARRIED OUT. ENDORSED TO DAY SHIFT NURSE FOR JUAN.
[2021-06-27] MEDS: LamoTRIgine 100 MG TABLET PO SCH ×2 (08:43→21:21)
[2021-06-27] MEDS: ATORVASTATIN 10 MG TABLET PO SCH (08:43)
[2021-06-27] MEDS: busPIRone 5 MG TABLET PO SCH ×4 (08:43→16:30)
[2021-06-27] MEDS: VENLAFAXINE XR 150 MG CAP.SR.24H PO SCH (08:43)
[2021-06-27] MEDS: QUETIAPINE FUMARATE 25 MG TABLET PO SCH ×5 (08:43→21:21)
[2021-06-27] MEDS: OLANZAPINE 5 MG TABLET PO SCH ×2 (08:43→16:30)
[2021-06-27] MEDS: MEMANTINE HCL 5 MG TABLET PO SCH ×2 (08:43→16:30)
[2021-06-27] MEDS: HEPARIN SODIUM, PORCINE 5000 UNITS/1 ML VIAL SQ SCH ×2 (08:45→21:25)
[2021-06-27] MEDS: MUPIROCIN OINT 2% 22 GM TUBE NS SCH ×2 (08:47→16:30)
--- NOTE | 2021-06-27 13:05 | NUR ---
MS RN NOTE PATIENT REFUSED 1300 MEDICATIONS - BUSPAR AND SEROQUEL. ATTEMPTED TO GIVE THEM IN PUDDING, PATIENT WAS SCREAMING AND KICKING.
[2021-06-27] MEDS ORDERED: NEUTRA PHOS 1 POWD.PACKET PO ONE (16:30)
--- NOTE | 2021-06-27 18:58 | NUR ---
MS RN CLOSING NOTE PATIENT CURRENTLY LYING IN BED, AWAKE AND RESTLESS. SITTER AT BEDSIDE. STABLE ON ROOM AIR - NO SOB NOTED. NO DISTRESS/DISCOMFORT NOTED. 5250 DC'D TODAY. B/L SOFT WRIST RESTRAINTS IN PLACE - GOOD CIRCULATION NOTED ON BOTH HANDS AND ARMS. RENEW @ 1914. IV ACCESS TO RIGHT WRIST #22 AND RIGHT AC #20 - INTACT AND PATENT. SAFETY MEASURES IN PLACE. CALL LIGHT WITHIN REACH. WILL ENDORSE TO SENIOR DESIGN ENGINEERING SPECIALIST NURSE FOR JUAN.
--- NOTE | 2021-06-27 20:00 | NUR ---
MS RN NOTE RECEIVED PATIENT IN BED WITH EYES OPEN, QUIET, CONFUSED. SITTER AT BED SIDE. PATIENT ON BILATERAL SOFT WRIST RESTRAINTS. NO FLUIDS RUNNING AT THIS TIME. NO S/S OF APPARENT DISTRESS. NOT EXHIBITING PAIN VIA FLACC. WILL CONTINUE TO MONITOR PATIENT.
[2021-06-27] MEDS: HALOPERIDOL LACTATE INJ 5 MG/ML VIAL IM PRN (23:21)
--- NOTE | 2021-06-27 23:25 | NUR ---
ms rn note patient very agitated at this time. kicking nurse and wanting to stand up. getting aggressive. given Haloperidol at this time. will cont. to monitor.
[2021-06-28] MEDS: VANCOMYCIN 0.75 GM in IV D5W 250 ML IV SCH (02:04)
--- NOTE | 2021-06-28 06:51 | NUR ---
MS RN CLOSING NOTE PATIENT IN BED STILL VERY CONFUSED. STILL ON 1:1. BILATERAL SOFT RESTRAINTS RENEWED. NO S/S OF APPARENT DISTRESS. NOT EXHIBITING ANY PAIN VIA FLACC. NO IV FLUIDS RUNNING AT THIS TIME. DRESSING CHANGED. NO SIGNIFICANT CHANGE SINCE LAST SHIFT. WILL ENDORSE CARE TO MORNING SHIFT RN.
[2021-06-28 07:06] LABS: BASOPHILS % (AUTO) 0.5 % (0.0-2.0); EOSINOPHILS % (AUTO) 2.8 % (0.0-6.0); HEMATOCRIT 38 % (39-51); HEMOGLOBIN 12.8 g/dL (13.5-17.5); LYMPHOCYTES % (AUTO) 15.6 % (20.0-44.0); MEAN CORPUSCULAR HGB CONC 33 g/dl (31.0-36.0); MEAN CORPUSCULAR VOLUME 90 fL (80-96); MONOCYTES # (AUTO) 0.6 K/uL (0.1-1.30); MONOCYTES % (AUTO) 9.8 % (2.0-12.0); NEUTROPHILS # (AUTO) 4.7 K/uL (1.8-8.9); NEUTROPHILS % (AUTO) 71.3 % (43.0-81.0); PLATELET COUNT (AUTO) 267 K/uL (150-450); RED BLOOD CELL COUNT(AUTO) 4.26 MIL/uL (4.5-6.0); WHITE BLOOD COUNT (AUTO) 6.6 K/uL (4.3-11.0)
--- NOTE | 2021-06-28 07:30 | NUR ---
MS RN OPENING NOTES RECEIVED PATIENT ON BED, AWAKE AND A/O X2. ON ROOM AIR TOLERATING WELL. NO SOB NOTED. WITH NO SIGNS OF PAIN OR DISCOMFORT SHOWN BY PATIENT. WITH IV ACCESS AT RIGHT WRIST G22, SL, PATENT AND INTACT. ON BILATERAL SOFT RESTRAINT ON BOTH WRIST. SAFETY MEASURES IN PLACED. CALL LIGHT WITHIN REACH. BED ON LOWEST AND LOCKED POSITION. SIDE RAILS UP X2. WILL CONTINUE TO MONITOR.
[2021-06-28 07:46] LABS: ALBUMIN 2.6 g/dL (3.4-5.0); BILIRUBIN,TOTAL 0.7 mg/dL (0.2-1.0); CALCIUM, SERUM 8.6 mg/dL (8.5-10.1); CREATININE 1.1 mg/dL (0.6-1.3); MAGNESIUM 2.2 mg/dL (1.8-2.4); PHOSPHORUS 3.3 mg/dL (2.5-4.9); POTASSIUM 3.7 mmol/L (3.5-5.1)
[2021-06-28] MEDS: busPIRone 5 MG TABLET PO SCH ×2 (09:04→13:53)
[2021-06-28] MEDS: LamoTRIgine 100 MG TABLET PO SCH (09:04)
[2021-06-28] MEDS: OLANZAPINE 5 MG TABLET PO SCH (09:05)
[2021-06-28] MEDS: QUETIAPINE FUMARATE 25 MG TABLET PO SCH ×2 (09:05→13:53)
[2021-06-28] MEDS: ATORVASTATIN 10 MG TABLET PO SCH (09:05)
[2021-06-28] MEDS: MEMANTINE HCL 5 MG TABLET PO SCH (09:06)
[2021-06-28] MEDS: VENLAFAXINE XR 150 MG CAP.SR.24H PO SCH (09:06)
[2021-06-28] MEDS: MUPIROCIN OINT 2% 22 GM TUBE NS SCH (10:52)
[2021-06-28] MEDS ORDERED: CEFEPIME 1 GM in IV D5W 50 ML IV SCH (13:00)
[2021-06-28 13:33] VITALS: BP 136/78
[2021-06-28] MEDS ORDERED: VANCOMYCIN 0.75 GM in IV D5W 250 ML IV SCH (14:00)
--- NOTE | 2021-06-28 16:43 | NUR ---
MS PILLOWCASE TURNER NOTES FOR DISCHARGE PER DOCTOR'S ORDER TO SNF. CALLED [facility]SE[facility]. DISCHARGE INSTRUCTION AND MED RECON GIVEN TO AMBULANCE PERSONNEL. DISCHARGE FORM AND BELONGINGS LIST FOR SIGNED BY AMBULANCE PERSONNEL NAMED [facility]. NAME WRIST BAND AND IV LINE REMOVED. PICKED UP BY AMBULANCE PERSONNEL VIA GURNEY. CHARGE NURSE AND MD ARE AWARE OF THE DISCHARGE.
== END 2021-06-28 17:00 | DRG 579 ==
LOC: TELE 00:28 → MED 06-23 10:02
PROVIDERS: ADMIT Nurse Practitioner Family
PROC: 0J9H0ZZ Drainage of Left Lower Arm Subcutaneous Tissue and Fascia, Open Approach (ICD-10-PCS; principal; 2021-06-26)
DX: L02.414 Cutaneous abscess of left upper limb (principal); N17.0 Acute kidney failure with tubular necrosis; G93.40 Encephalopathy, unspecified; E87.0 Hyperosmolality and hypernatremia; R47.01 Aphasia; L03.114 Cellulitis of left upper limb; F25.9 Schizoaffective disorder, unspecified; F01.50 Vascular dementia, unspecified severity, without behavioral disturbance, psychotic disturbance, mood disturbance, and anxiety; E86.0 Dehydration; G31.09 Other frontotemporal neurocognitive disorder; F02.80 Dementia in other diseases classified elsewhere, unspecified severity, without behavioral disturbance, psychotic disturbance, mood disturbance, and anxiety; I10 Essential (primary) hypertension; M70.22 Olecranon bursitis, left elbow; N40.0 Benign prostatic hyperplasia without lower urinary tract symptoms; Z22.322 Carrier or suspected carrier of Methicillin resistant Staphylococcus aureus; Z66 Do not resuscitate; Z79.899 Other long term (current) drug therapy; Z73.6 Limitation of activities due to disability
CPT/HCPCS: 36415; 71045-TC; 73080-TC; 73200-TC; 76770-TC; 80048-TC; 80053-TC; 80202-TC; 81001; 82570-TC; 82728-TC; 83540-TC; 83605-TC; 83735-TC; 84100-TC; 84300-TC; 85025-TC; 87040-TC; 87070-TC; 87075-TC; 87081-TC; 87086-TC; 88304-TC; 92526; 92611-TC; 93307-TC; 93971-TC; A6253; G0378; J0690; J0692; J1200; J1630; J1644; J2060; J2704; J3010; J3370; J3480; J3490; J7030; J7040; J7050; J7060; J7120